=== PATIENT | male | born 1985 | race African-American/Black ===

== ENCOUNTER 2018-04-04 09:01 | Emergency (ER) | payer BC ==
[~2018-04-04] VITALS: Ht 200.7 cm; Wt 164.0 kg
[2018-04-04] MEDS ORDERED: BACITRACIN ZINC OINT UDPKT TOP ONE (09:30)
[2018-04-04] MEDS ORDERED: LIDOCAINE HCL/PF 1% 10 MG/ML 5ML VIAL IJ ONE (09:30)
[2018-04-04] MEDS ORDERED: IBUPROFEN 600MG TABLET PO ONE (10:00)
[2018-04-04 10:25] VITALS: BP 131/87
== END 2018-04-04 10:26 | disposition home or self-care (01) ==
LOC: ER 09:17
DX: S51.811A Laceration without foreign body of right forearm, initial encounter (principal); F17.200 Nicotine dependence, unspecified, uncomplicated; W54.0XXA Bitten by dog, initial encounter; Y93.89 Activity, other specified; Y92.89 Other specified places as the place of occurrence of the external cause; Y99.8 Other external cause status
CPT/HCPCS: 12001; 99283; J3490

== ENCOUNTER 2018-04-11 13:14 | Emergency (ER) | payer BC ==
[~2018-04-11] VITALS: Ht 200.7 cm; Wt 155.0 kg
[2018-04-11 13:30] VITALS: BP 130/79
== END 2018-04-11 18:19 | disposition home or self-care (01) ==
LOC: ER 13:14
DX: S51.811D Laceration without foreign body of right forearm, subsequent encounter (principal); F17.200 Nicotine dependence, unspecified, uncomplicated; W54.0XXD Bitten by dog, subsequent encounter
CPT/HCPCS: 99281; Z7610